=== PATIENT | female | born 1995 | race African-American/Black ===

== ENCOUNTER 2018-06-05 08:33 | Outpatient (CLI) | payer OTHER ==
--- NOTE | 2018-06-05 11:13 | RAD ---
BARIUM SWALLOW ESOPHOGRAM DOUBLE CONTRAST: Date: 06-05-18 History: 22-year-old female with chest pain, diffuse spasm of the esophagus. Technique: Upright administration of effervescent granules and thick liquid barium. Prone TRISTAN straw administrati on of thin liquid barium. FINDINGS: The esophagus has normal motility, distensibility, and mucosal pattern. No moderate sized or large hi atal hernia is visualized. No tertiary contractions. No major gastroesophageal reflux. IMPRESSION: Negative. POS: [facility]
== END 2018-06-05 08:34 | disposition home or self-care (01) ==
LOC: RAD 08:33
PROVIDERS: ATTEND Internal Medicine Gastroenterology
DX: K22.4 Dyskinesia of esophagus (principal)
CPT/HCPCS: 74220

== ENCOUNTER 2018-11-14 14:11 | Outpatient (CLI) | payer OTHER, MEDICAID ==
--- NOTE | 2018-11-14 18:44 | ULT ---
ULTRASOUND OBSTETRICAL COMPLETE: 11/14/18 HISTORY: 23-year-old female in second trimester of first . FINDINGS: number: Alvarez. lie: Footling breech. Maternal cervix: 3.5 cm. Placenta: Posterior. Inferior edge approximately 2 cm from internal cervical os. Amniotic fluid volume: VALENTINE 20 cm. heart rate: 155 bpm The following anatomy is visualized, with no evidence of anomalies: Head, lateral ventricles, cerebellum, spine, upper limbs, lower limbs, four chamber heart, umbilical cord, cord insertion, stomach, kidneys, and bladder. Nose and lips not visualized because of early stage of , and position. biometry: Head circumference (HC): 15.8 cm 18w 5d Biparietal diameter (BPD): 4.1 cm 18w 4d Abdominal circumference (AC): 12.7 cm 18w 2d Femur length (FL): 2.9 cm 18w 6d Average ultrasound age (AUA): 18w 5d Estimated date of delivery (BEATRICE): 04/12/2019 Last menstrual period (LMP): 07/09/2018 Gestational age by LMP: 18w 2d Estimated weight (EFW): 245 g +/- 36 g (0 lb. 9 oz. +/- 1 oz). IMPRESSION: 1. Live second trimester intrauterine gestation. 2. Estimated gestational age of 18 weeks, 5 days. 3. Footling breech lie. 4. Nose and lips not visualized, otherwise no anatomical abnormalities visualized. jn [] POS: [facility]
== END 2018-11-14 14:12 | disposition home or self-care (01) ==
LOC: BICULT 14:11
PROVIDERS: ATTEND Family Medicine
DX: Z34.02 Encounter for supervision of normal first pregnancy, second trimester (principal); Z3A.18 18 weeks gestation of pregnancy
CPT/HCPCS: 76805

== ENCOUNTER 2019-01-11 20:44 | Day surgery (SDC) | payer OTHER ==
[2019-01-11 21:19] VITALS: BP 124/60; TEMP 99.2; BMI 37.5
[2019-01-11] MEDS ORDERED: hydrALAZINE 20 MG/ML VIAL SLOW IVP PRN (21:36)
[2019-01-11] MEDS ORDERED: Acetaminophen 500 MG TAB PO SCH (21:45)
[2019-01-11] MEDS ORDERED: diphenhydrAMINE 50 MG/ML VIAL IVP SCH (21:45)
--- NOTE | 2019-01-11 21:48 | PDOC.FPROB ---
Addendum entered and electronically signed by Camila Dunn DO 01/12/19 00 :32: On re-evaluation patient's headache improved with IV benadryl, reglan, and IVF. Replaced potassium. PO challenge passed. UA negative. Will send Rx for reglan and benadryl. Encouraged continued oral hydration at home. Patient's abdominal pain also improved. Discussed discharge plan with patient who was agreeable. Advised follow up with PCP in next week. Original Note: FMR OB H&P: HPI - History of Present Illness Chief Complaint: Headache, N/V Indentification: 23 year old at 27.0 wks History of Present Illness: 23 year old at 27.0 wks presents with a 3 day history of headache described as throbbing in frontal and occipital region. Patient denies previous history of migraines. She states that Tylenol does help occasionally, but feels like it has not helped most of today. She last took Tylenol at 19:00. Patient reports that 2 days ago she started to have N/V. She has been unable to tolerate PO with the exception of water. Patient also endorses abdominal pain worse in suprapubic region and LLQ, although the pain is diffuse. Abdominal pain is described as sharp. Patient denies constipation or diarrhea. Patient denies dysuria, but she endorses urinary hesitancy which is new over the last few days. She denies fever or chills. Patient denies history of bowel obstructions. Patient also endorses decreased movement since 01/09. Patient denies vaginal bleeding, vaginal discharge, LoF, or contractions. Primary Care Physician: Dr. 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: Hx of chlamydia 2 years ago, no hx in this - Surgical History Sx History: Umbilical hernia repair as a child - Social History Social History: Denies alcohol, tobacco, or drug use - Family History Family History: Denies any significant PMH FMR OB H&P: Medications - Current Home Medications: Medication Instructions Recorded Confirmed Type Doxylamine Succinate/Vit B6 1 tablet PO PRN 01/11/19 History [Dicleg[address] DR] Ondansetron [Zofran ODT] 1 tab PO 01/11/19 History Pantoprazole [Protonix] 40 mg PO DAILY 01/11/19 01/11/19 History Metoclopramide HCl [Reglan] 10 mg PO TID PRN #30 tab 01/12/19 Rx diphenhydrAMINE [Benadryl] 25 mg PO Q6HR PRN #30 tab 01/12/19 Rx Allergies/Adverse Reactions: Allergies Allergy/AdvReac Type Severity Reaction Status Date / Time No Known Allergies Allergy Unverified 11/16/13 19:33 FMR OB H&P: ROS - Review of Systems General: reports: weight/appetite/sleep changes (Decreased appetite). denies: fever/chills, night sweats Eyes: reports: vision changes (spotty vision with onset of headache). denies: double vision, scotomas ENT: denies: nasal congestion, rhinorrhea, sore throat Cardiovascular: denies: chest pain, palpitation, edema Respiratory: denies: cough, congestion, shortness of breath Gastrointestinal: reports: abdominal pain, nausea, vomiting. denies: diarrhea, constipation Genitourinary (Female): reports: other (urinary hesitancy). denies: incontinence, dysuria, vaginal discharge, vaginal bleeding, contractions, vaginal pressure Musculoskeletal: denies: pain, stiffness Neurologic: reports: headache, other (Dizziness). denies: numbness, syncope Integumentary: denies: itching, rash, lesions Hematologic/Lymphatic: denies: prolonged or excessive bleeding Psychological: denies: depression, anxiety FMR OB H&P: Vital Signs - Maternal Vital signs: Vital Signs - First Documented Temp Pulse Resp BP Pulse Ox 99.2 F 78 18 124/60 99 01/11/19 21:13 01/11/19 21:13 01/11/19 21:13 01/11/19 21:13 01/11/19 21:13 - Heart Tones Baseline: 140 Variability: moderate Acceleration: present FMR OB H&P: Physical Exam - Physical Exam General: NAD, awake, alert and oriented HEENT: EOMI, MMM, grossly normal vision, grossly normal hearing Heart: RRR, no murmurs/rubs/gallops General: CTAB, no respiratory distress Abdomen: soft, gravid Deviation from normal: Tender to palpation throughout, worse in LLQ and suprapubic region Musculoskeletal: pulses present, FROM in all four extremities Neurological: no tremor, no focal deficit Skin: no rash, capillary refill <2 seconds Psychiatric: intact recent and remote memory, good judgement and insight, normal mood and affect FMR OB H&P: A/P - Problem List (1) Headache Status: Acute Code(s): R51 - HEADACHE (2) Status: Acute (3) Nausea & vomiting Status: Acute Code(s): R11.2 - NAUSEA WITH VOMITING, UNSPECIFIED Disposition: 23 year old at 27.0 wks presents with headache, N/V 1. Headache, likely migraine w/ aura - Associated N/V - MODI x3 days, only occasionally relieved with tylenol which has not been helping most of today - Will initiate migraine protocol (benadryl and reglan ANGELINA) and re-evaluate in 2 hours 2. N/V - Likely related to above - Will initiate migraine protocol; if no improvement in 2 hours, will re- evaluate - Given 2 day history of no PO intake, will get CBC and CMP - CMP to evaluate electrolytes - 1L LR - PO challenge once headache improved 3. Abdominal pain - Worse in suprapubic region - Straight cath UA pending - CBC pending - May be related to MSK pain from N/V 4. - Reactive strip Dispo: Workup pending. Will re-evaluate in 2 hours after migraine protocol is completed. Discussion: Date/Time: 01/11/19 396 This H&P was discussed with [] and [] who agree with the above documentation and plan. Addendum - Attending - Attending Attestation Date/Time: 01/14/19 [id number] I personally evaluated the patient and discussed the management with Dr. Dunn I agree with the History, Examination, Assessment and Plan documented above with any addition or exceptions noted below. PT presenting with headache, N/V/light sensativity- treated with series of reglan/benadryl.iv fluids with significant improvement vital signs wnl appears uncomfortable, covering head pt discharged home after treatment with improvement of symptoms
[2019-01-11 22:00] LABS: #Eosinphils 0.1 thou/uL (0.0-0.7); #Lymphocytes 1.6 thou/uL (1.20-3.40); #Monocytes 0.5 thou/uL (0.11-0.59); #Neutrophils 4.1 thou/uL (1.40-6.50); %Basophils 0.7 % (0.0-1.0); %Lymphocytes 25.7 % (21.0-51.0); %Neutrophils 64.6 % (42.0-75.0); Hemoglobin 11.1 g/dL (12.0-16.0); Mean Corpuscular HGB CONC 34.8 g/dL (32.0-36.0); Mean Corpuscular Hemoglobin 29.7 pg (27.0-31.0); Mean Corpuscular Volume 85.5 fL (78.0-98.0); Mean Platelet Volume 7.5 fL (7.4-10.4); Platelet Count 257 thou/uL (130-400); RBC Distribution Width 11.9 % (11.5-14.5); Red Blood Cell (RBC) Count 3.74 mill/uL (4.20-5.40); White Blood Cell (WBC) Count 6.3 thou/uL (4.8-10.8)
[2019-01-11] MEDS ORDERED: Lactated Ringer's 1,000 ML IV SCH (22:00)
[2019-01-11] MEDS ORDERED: Metoclopramide HCl 10 MG/2 ML VIAL IVP SCH (22:00)
[2019-01-11] MEDS: diphenhydrAMINE 50 MG/ML VIAL IVP SCH ×2 (22:01→23:08)
[2019-01-11] MEDS: Metoclopramide HCl 10 MG/2 ML VIAL IVP SCH ×4 (22:04→23:40)
[2019-01-11 22:22] LABS: ALT (SGPT) 7 U/L (8-55); AST (SGOT) 13 U/L (5-34); Albumin 3.8 g/dL (3.5-5.0); Alkaline Phosphatase 60 U/L (40-150); Anion Gap 13 mmol/L (10-20); BUN (Urea Nitrogen) 4 mg/dL (7.0-18.7); Bilirubin, Total 0.3 mg/dL (0.2-1.2); Calc. Creatinine Clearance 232 mL/min (70-130); Calcium 9.1 mg/dL (7.8-10.44); Carbon Dioxide 21 mmol/L (22-29); Chloride 106 mmol/L (98-107); Estimated GFR-MDRD Greater than 90; Globulin 2.9 g/dL (2.4-3.5); Glucose 79 mg/dL (70-105); Potassium 3.3 mmol/L (3.5-5.1); Protein, Total 6.7 g/dL (6.0-8.3); Sodium 137 mmol/L (136-145)
[2019-01-11 22:36] LABS: Bacteria/HPF None Seen HPF (None Seen); Bilirubin Negative (Negative); Blood, Urine Negative (Negative); Clarity Clear (Clear); Glucose, Urine (Dipstick) Normal (Negative); Leukocyte Negative Leu/uL (Negative); Nitrite Negative (Negative); Protein, Urine (Dipstick) Negative (Neg-Trace); RBC/HPF 0-3 HPF (0-3); Squamous Epithelial 0-3 HPF (0-3); Urobilinogen Normal mg/dL (Less than 2); WBC/HPF 0-3 HPF (0-3)
[2019-01-11 22:38] LABS: Renal Epithelial None Seen HPF (None Seen)
== END 2019-01-12 00:28 | disposition home or self-care (01) ==
LOC: L&D/OP 20:44
PROVIDERS: ATTEND Family Medicine
DX: O99.89 Other specified diseases and conditions complicating pregnancy, childbirth and the puerperium (principal); R51 Headache; R10.32 Left lower quadrant pain; O21.2 Late vomiting of pregnancy; Z79.899 Other long term (current) drug therapy; Z3A.27 27 weeks gestation of pregnancy
CPT/HCPCS: 36415; 51701; 80053; 81003; 85025; 96360; 96361; 96375; 99282; J1200; J2765

== ENCOUNTER 2019-01-23 13:30 | Outpatient (CLI) | payer OTHER, MEDICAID ==
--- NOTE | 2019-01-23 14:56 | ULT ---
OB ULTRASOUND: 01/23/19 HISTORY: Follow-up low lying placenta. FINDINGS: A single live intrauterine gestation is seen with measurements corresponding to an estimated gestatio nal age of 27 weeks, 0 days and BEATRICE at 04/24/19. The estimated weight measures 1031 grams or 2 lb. 4 oz. (4th percentile by Hadlock criteria). measurements are as follows: BPD 6.27 cm 25 weeks, 3 days HC 25.17 cm 27 weeks, 3 days AC 22.54 cm 27 weeks, 0 days FL 5.18 cm 27 weeks, 5 days heart rate measures 149 beats per minute. VALENTINE measures 11.4 cm. Cervical length measures 3.8 cm . The placenta is posteriorly located without evidence of placenta previa. The placenta does not appe ar to be low lying. IMPRESSION: Single live IUP of 27 weeks estimated gestational age and BEATRICE at 04/24/19. POS: [facility]
== END 2019-01-23 13:31 | disposition home or self-care (01) ==
LOC: BICULT 13:30
PROVIDERS: ATTEND Family Medicine
DX: Z34.02 Encounter for supervision of normal first pregnancy, second trimester (principal); Z3A.27 27 weeks gestation of pregnancy
CPT/HCPCS: 76815

== ENCOUNTER 2019-04-01 09:27 | Outpatient (CLI) | payer OTHER ==
--- NOTE | 2019-04-01 12:17 | ULT ---
LIMITED OB ULTRASOUND: HISTORY: IUGR. FINDINGS: A single live intrauterine gestation is seen with measurements corresponding to an estimated gestatio nal age of 36 weeks 1 day and an BEATRICE of 04/28/2019. The estimated weight measures 3004 g or 6 lbs 10 oz (29th percentile by Hadlock criteria). measurements are as follows: BPD: 8.20 cm (33 weeks 0 days) HC: 32.46 cm (36 weeks 5 days) AC: 33.62 cm (37 weeks 4 days) FL: 7.16 cm (36 weeks 5 days) heart rate measures 141 beats per minute. VALENTINE measures 9.9 cm. Placenta is posteriorly located without evidence of placenta previa. presentation is cephalic. IMPRESSION: Single live intrauterine of 36 weeks 1 day estimated gestational age and estimated date of delivery of 04/28/2019. POS: [facility]
== END 2019-04-01 09:28 | disposition home or self-care (01) ==
LOC: ULT 09:27
PROVIDERS: ATTEND Family Medicine
DX: O36.5930 Maternal care for other known or suspected poor fetal growth, third trimester, not applicable or unspecified (principal); Z3A.36 36 weeks gestation of pregnancy
CPT/HCPCS: 76815

== ENCOUNTER 2019-04-16 07:16 | Inpatient (IN) | payer OTHER ==
[2019-04-16 07:44] VITALS: BMI 40.5
[2019-04-16] MEDS ORDERED: Lidocaine 1% (PF) 30 ML VIAL SC PRN (08:28)
[2019-04-16] MEDS ORDERED: Meperidine HCl/PF 25 MG/ML VIAL IM/IV PRN (08:28)
[2019-04-16] MEDS ORDERED: Ondansetron PF 4 MG/2 ML Vial IVP PRN ×2 (08:28→14:13)
[2019-04-16] MEDS ORDERED: NS / Oxytocin 40 units/1000ml 1,000 ML IV PRN (08:28)
[2019-04-16] MEDS ORDERED: Promethazine HCl 25 MG/ML VIAL IM PRN (08:28)
[2019-04-16] MEDS ORDERED: Ibuprofen 800 MG TAB PO PRN (08:28)
[2019-04-16] MEDS ORDERED: Acetaminophen/Codeine 30-300mg Tablet PO PRN ×2 (08:28)
[2019-04-16] MEDS ORDERED: hydrALAZINE 20 MG/ML VIAL SLOW IVP PRN ×2 (08:28→14:13)
[2019-04-16] MEDS ORDERED: Zolpidem Tartrate 5 MG TAB PO PRN (08:28)
[2019-04-16] MEDS ORDERED: NS w/ Oxytocin 10 units 500 ML IV SCH (08:30)
[2019-04-16] MEDS ORDERED: Penicillin G Potassium 5 MILL.UNITS in Sodium Chloride 0.9% 100 ML IVPB SCH (08:30)
[2019-04-16] MEDS ORDERED: Lactated Ringer's 1,000 ML IV SCH ×2 (08:30)
--- NOTE | 2019-04-16 08:34 | PDOC.LDHP ---
Labor and Delivery H&P Chief complaint: contractions HPI: 23 yo BF G1 presents c/o regular UCs since last PM. Current gestational age (weeks): 40 Due date: 04/15/19 Dating criteria: last menstrual period Grav: 1 Para: 0 Current complications: none Abnormal US findings: No Current medications: pre- vitamins, other (Zofran, Diclegis prn) Previous surgical history: none Allergies/Adverse Reactions: Allergies Allergy/AdvReac Type Severity Reaction Status Date / Time No Known Allergies Allergy Verified 04/16/19 07:43 Social history: none - Physical Exam Vital signs reviewed and normal: yes General: breathing through contractions Heart: RRR Lungs: nonlabored breathing Abdomen: gravid Extremeties: trace edema FHT: category 1 [place] contractions every: q 2-6 mins - Vaginal Exam cm dilated: 2 Effacement: 90% Station: -1 - OB Labs Blood type: unknown RH: unknown Antibody Screen: unknown GBS: positive - Assessment L&D Assessment: term rupture in membranes (exam c/w SROM by Labor RN) - Plan Plan: admit to L&D, labor augmentation if indicated, GBS antibiotic prophylaxis (Dr. Lula Laurent notified by Labor RN)
[2019-04-16 09:47] LABS: Hemoglobin 10.7 g/dL (12.0-16.0); Mean Corpuscular HGB CONC 35.4 g/dL (32.0-36.0); Mean Corpuscular Volume 84.7 fL (78.0-98.0); Mean Platelet Volume 7.8 fL (7.4-10.4); Platelet Count 228 thou/uL (130-400); RBC Distribution Width 12.6 % (11.5-14.5); Red Blood Cell (RBC) Count 3.58 mill/uL (4.20-5.40); White Blood Cell (WBC) Count 12.7 thou/uL (4.8-10.8)
[2019-04-16] MEDS: Butorphanol Tartrate 1 MG/ML VIAL SLOW IVP PRN ×3 (09:59→12:47)
[2019-04-16 10:28] LABS: HBSAg Index 0.18 S/CO (0-0.99); Hep B Surf Ag Non-Reactive S/CO (NonReactive)
[2019-04-16 10:29] LABS: Syphilis Antibody Nonreactive (Nonreactive); Syphilis Antibody Index 0.29 S/CO (<1.00 Non-Reactive)
[2019-04-16] MEDS ORDERED: Penicillin G 2.5 MILL.units 2.5 MILL.UNITS in Premix Bag 1 BAG IVPB SCH (12:00)
[2019-04-16] MEDS ORDERED: Lanolin Ointment 7 GM TUBE TOP PRN (14:13)
[2019-04-16] MEDS ORDERED: Milk Of Magnesia 30 ML UDCUP PO PRN (14:13)
[2019-04-16] MEDS ORDERED: NS / Oxytocin 40 units/1000ml 1,000 ML IV SCH (14:13)
[2019-04-16] MEDS ORDERED: Bisacodyl 10 MG SUPP PR PRN (14:13)
[2019-04-16] MEDS ORDERED: Benzocaine-Menthol 82.5 ML CAN TOP PRN (14:13)
[2019-04-16] MEDS: HYDROcodone/Acetaminophen 5/325 mg Tablet PO PRN ×2 (14:46→20:33)
[2019-04-16] MEDS: Ibuprofen 800 MG TAB PO SCH ×2 (15:59→17:46)
[2019-04-16] MEDS: Ferrous Sulfate 325 MG TAB PO SCH (17:57)
[2019-04-16] MEDS: Docusate Calcium (SURFAK) 240 MG CAP PO SCH (20:35)
[2019-04-17] MEDS: Ibuprofen 800 MG TAB PO SCH ×4 (00:51→20:28)
[2019-04-17] MEDS: Ferrous Sulfate 325 MG TAB PO SCH ×2 (07:45→14:57)
[2019-04-17] MEDS: Docusate Calcium (SURFAK) 240 MG CAP PO SCH ×2 (09:32→20:27)
[2019-04-17] MEDS: Prenatal Vitamin 1 TAB PO SCH (09:32)
[2019-04-17] MEDS: HYDROcodone/Acetaminophen 5/325 mg Tablet PO PRN ×3 (09:32→20:25)
[2019-04-18] MEDS: Ibuprofen 800 MG TAB PO SCH (04:28)
[2019-04-18] MEDS: HYDROcodone/Acetaminophen 5/325 mg Tablet PO PRN (04:29)
[2019-04-18 08:29] VITALS: BP 131/65; TEMP 98.2
[2019-04-18] MEDS: Prenatal Vitamin 1 TAB PO SCH (09:21)
[2019-04-18] MEDS: Ferrous Sulfate 325 MG TAB PO SCH (09:21)
[2019-04-18] MEDS: Docusate Calcium (SURFAK) 240 MG CAP PO SCH (09:21)
== END 2019-04-18 11:00 | disposition home or self-care (01) | DRG 807 ==
LOC: L&D/OP 07:16 → L&D 11:51 → 3SW 16:44
PROVIDERS: ADMIT Family Medicine; ATTEND Family Medicine
PROC: 10E0XZZ Delivery of Products of Conception, External Approach (ICD-10-PCS; principal; 2019-04-16)
DX: O99.824 Streptococcus B carrier state complicating childbirth (principal); Z37.0 Single live birth; O70.0 First degree perineal laceration during delivery; Z3A.40 40 weeks gestation of pregnancy
CPT/HCPCS: 36415; 85027; 86780; 86850; 86900; 86901; 87340; 99285; J0595; J2540; J2590; J3490